=== PATIENT | male | born 1990 | race Caucasian/White ===

== ENCOUNTER 2021-10-03 05:04 | Emergency (ER) | payer BC ==
[~2021-10-03 05:04] MED LIST: BACTRIM DS TAB1 EACH PO; LAMISIL AF133 GM TP; LORTAB 5-325 M1 EACH PO; SYNTHROID 137137 MCG PO
== END 2021-10-03 06:25 | disposition home or self-care (01) ==
LOC: ER1 05:04
DX: S81.812A Laceration without foreign body, left lower leg, initial encounter (principal); Z23 Encounter for immunization; W45.8XXA Other foreign body or object entering through skin, initial encounter; Y92.89 Other specified places as the place of occurrence of the external cause; Y99.0 Civilian activity done for income or pay
CPT/HCPCS: 12032; 73590; 90715; 99283